=== PATIENT | female | born 1930 | race Caucasian/White ===

== ENCOUNTER 2017-04-06 09:10 | Inpatient (IN) ==
[2017-04-06] MEDS ORDERED: SODIUM CHLORIDE 0.9% 500 ML IV STA (09:30)
[2017-04-06 09:47] LABS: Basophils # 0.1 10*3/uL (0.0-0.2); Basophils % 0.7 % (0.0-0.8); Hematocrit 28.3 VOL% (35.7-47.0); Hemoglobin 9.8 GM/DL (12.0-16.0); Immature Granulocytes % 8.7 %; Immature Granulocytes Absolute 1.55 #; Lymphocytes # 3.7 10*3/uL (1.4-4.0); Lymphocytes % 20.9 % (21.3-54.2); Mean Corpuscular HGB Conc 34.6 GM/DL (32-36); Mean Corpuscular Hemoglobin 33 PG (27-34); Mean Corpuscular Volume 94.3 FL (87-102); Monocytes # 2.6 10*3/uL (0.11-0.8); Monocytes % 14.4 % (1.7-12.7); NRBC # 0.08 10*3/uL; Neutrophils # 9.8 10*3/uL (1.4-7.4); Neutrophils % 55.3 % (38.7-73.9); Platelet Count 294 T/CUMM (130-400); Red Cell Distribution Width 14.1 % (9.3-17.3); White Blood Count 17.7 T/CUMM (4-12)
[2017-04-06 09:54] LABS: PT Patient Result 10.9 SECS
[2017-04-06 10:23] LABS: Alanine Aminotransferase 80 U/L (13-56); Albumin 3.2 G/DL (3.4-5.0); Alkaline Phosphatase 67 U/L (45-117); Aspartate Amino Transferase 61 U/L (0-37); Bilirubin,Total < 0.39 MG/DL (0.2-1.0); Blood Urea Nitrogen 32 MG/DL (7-18); Calcium 8.9 MG/DL (8.5-10.1); Glucose 151 MG/DL (74-106); Osmolality,Calculated 279.1 MOS/KG (273-304); Potassium 4.5 MMOL/L (3.5-5.1); Sodium 135 MMOL/L (136-145); Total Protein 6.8 G/DL (6.4-8.3); Troponin I Only < 0.015 NG/ML (0.00-0.045)
[2017-04-06 10:26] LABS: Band Neutrophils 6 % (0-10); Hypochromasia 2+; Lymphocytes 24 % (20-55); Microcytosis 1+; Platelet Estimate Adequate; Segmented Neutrophils 55 % (50-85); Total Cells Counted 100
[2017-04-06 10:54] LABS: Apearance,Urine CLEAR (Clear); Bilirubin,Urine Negative (Negative); Blood, Urine Negative (Negative); Glucose,Urine (UA) Negative (Negative); Hyaline Casts,Urine 2 /LPF (0-3); Ketones,Urine Negative (Negative); Nitrite,Urine Negative (Negative); Protein,Urine Negative; RBC,Urine <1 /HPF (0-4); Urine Color Yellow (Yellow); Urine Specific Gravity 1.013 (1.001-1.035); Urine Urobilinogen < 2.0 EU/DL (0.2-1.0); WBC,Urine 1 /HPF (0-6)
[2017-04-06] MEDS ORDERED: diphenhydrAMINE CAP 25 MG CAPSULE PO PRN (11:26)
[2017-04-06] MEDS ORDERED: ONDANSETRON 4 MG/2 ML VIAL IV PRN (11:26)
[2017-04-06] MEDS ORDERED: DOCUSATE SODIUM 100 MG CAPSULE PO PRN (11:26)
[2017-04-06] MEDS ORDERED: cefTRIAXone 1,000 MG VIAL ONE (11:59)
[2017-04-06] MEDS ORDERED: PANTOPRAZOLE 40 MG TABLET PO ONE (12:00)
[2017-04-06] MEDS: SODIUM CHLORIDE 0.9% 1,000 ML IV SCH ×2 (12:15→21:20)
[2017-04-06] MEDS: PANTOPRAZOLE 40 MG TABLET PO SCH ×2 (12:15→21:23)
[2017-04-06] MEDS: cefTRIAXone 1,000 MG in SYRINGE 1 EACH IV SCH (12:15)
[2017-04-06 13:28] LABS: Hematocrit 22.7 VOL% (35.7-47.0); Hemoglobin 8.1 GM/DL (12.0-16.0)
[2017-04-06] MEDS ORDERED: metroNIDAZOLE 500 MG/100 ML PREMIX IV ONE (13:43)
[2017-04-06] MEDS: metroNIDAZOLE INJ 500 MG in PREMIX 1 EACH IV SCH ×2 (13:45→21:21)
[2017-04-06] MEDS ORDERED: POLYETHYLENE GLYCOL POWDER 255 GM BOTTLE PO ONE (15:12)
[2017-04-06] MEDS ORDERED: SODIUM CHLORIDE 0.9% 1,000 ML IV PRN ×2 (15:13→22:51)
[2017-04-06] MEDS: BISACODYL 5 MG TABLET PO SCH ×2 (17:01→23:28)
[2017-04-06] MEDS ORDERED: PROMETHAZINE INJ 25 MG in SODIUM CHLORIDE 0.9% 50 ML IV PRN (22:29)
[2017-04-06] MEDS ORDERED: FUROSEMIDE 20 MG/2 ML VIAL IV PRN (22:51)
[2017-04-06] MEDS ORDERED: POLYETHYLENE GLYCOL 3350/ELECTROLYTES 4,000 ML BOTTLE NG ONE (23:00)
[2017-04-06 23:18] LABS: Hematocrit 32.5 VOL% (35.7-47.0)
[2017-04-06 23:26] LABS: Hemoglobin 11.9 GM/DL (12.0-16.0)
[2017-04-07] MEDS: metroNIDAZOLE INJ 500 MG in PREMIX 1 EACH IV SCH ×4 (03:16→21:07)
[2017-04-07] MEDS: SODIUM CHLORIDE 0.9% 1,000 ML IV SCH ×3 (03:43→19:30)
[2017-04-07 05:43] LABS: Basophils # 0.1 10*3/uL (0.0-0.2); Basophils % 0.7 % (0.0-0.8); Hematocrit 31.5 VOL% (35.7-47.0); Hemoglobin 11.2 GM/DL (12.0-16.0); Immature Granulocytes % 6.3 %; Immature Granulocytes Absolute 0.96 #; Lymphocytes # 2.7 10*3/uL (1.4-4.0); Lymphocytes % 17.7 % (21.3-54.2); Mean Corpuscular HGB Conc 35.6 GM/DL (32-36); Mean Corpuscular Hemoglobin 32 PG (27-34); Mean Platelet Volume 9.9 FL (9.6-12.0); Monocytes # 2.3 10*3/uL (0.11-0.8); Monocytes % 15.3 % (1.7-12.7); NRBC # 0.08 10*3/uL; Neutrophils # 9.1 10*3/uL (1.4-7.4); Platelet Count 225 T/CUMM (130-400); Red Blood Count 3.54 MC/CUMM (3.8-5.5); Red Cell Distribution Width 14.9 % (9.3-17.3); White Blood Count 15.2 T/CUMM (4-12)
[2017-04-07 05:55] LABS: INR 1.1; PT Patient Result 11.1 SECS
[2017-04-07 06:04] LABS: Calcium 8.4 MG/DL (8.5-10.1); Magnesium 1.7 MG/DL (1.8-2.4); Osmolality,Calculated 281.4 MOS/KG (273-304); Potassium 3.4 MMOL/L (3.5-5.1)
[2017-04-07 07:00] LABS: Band Neutrophils 5 % (0-10); Hypochromasia 1+; Lymphocytes 16 % (20-55); Microcytosis 1+; Myelocytes 2 %; Nucleated Red Blood Cells 1 (0-5); Platelet Estimate Normal; Segmented Neutrophils 63 % (50-85); Total Cells Counted 100
[2017-04-07] MEDS ORDERED: MAGNESIUM SULF RIDER 2 GM in PREMIX 1 EACH IV ONE (07:35)
[2017-04-07] MEDS ORDERED: POTASSIUM CHLORIDE RIDER 10 MEQ in PREMIX 1 EACH IV SCH (08:00)
[2017-04-07] MEDS: BISACODYL 5 MG TABLET PO SCH (08:18)
[2017-04-07] MEDS: cefTRIAXone 1,000 MG in SYRINGE 1 EACH IV SCH (08:18)
[2017-04-07 08:44] LABS: Hematocrit 31.5 VOL% (35.7-47.0); Hemoglobin 11.1 GM/DL (12.0-16.0)
[2017-04-07] MEDS ORDERED: PHENYLEPHRINE 1 MG/10 ML SYRINGE IV ONE (08:50)
[2017-04-07] MEDS ORDERED: PROPOFOL 200 MG/20 ML VIAL IV ONE ×2 (08:50→17:08)
[2017-04-07] MEDS ORDERED: LIDOCAINE 100 MG/5 ML SYRINGE ONE (08:50)
[2017-04-07] MEDS ORDERED: SODIUM CHLORIDE 0.9% IV ONE (09:00)
[2017-04-07] MEDS ORDERED: MAGNESIUM SULF IV ONE (09:00)
[2017-04-07] MEDS ORDERED: POTASSIUM CHLORIDE IV ONE (09:00)
[2017-04-07] MEDS ORDERED: SODIUM CHLORIDE 0.9% 1,000 ML IV PRN (13:45)
[2017-04-07] MEDS: PANTOPRAZOLE 40 MG TABLET PO SCH ×2 (14:28→21:07)
[2017-04-07 18:28] LABS: Hemoglobin 11.9 GM/DL (12.0-16.0)
[2017-04-07] MEDS: ACETAMINOPHEN 325 MG TABLET PO PRN (23:07)
[2017-04-08] MEDS: metroNIDAZOLE INJ 500 MG in PREMIX 1 EACH IV SCH ×4 (03:47→21:55)
[2017-04-08 05:49] LABS: Hematocrit 29.6 VOL% (35.7-47.0); Hemoglobin 10.5 GM/DL (12.0-16.0)
[2017-04-08] MEDS: SODIUM CHLORIDE 0.9% 1,000 ML IV SCH ×3 (07:31→23:00)
[2017-04-08] MEDS: PANTOPRAZOLE 40 MG TABLET PO SCH ×2 (08:48→21:57)
[2017-04-08] MEDS: cefTRIAXone 1,000 MG in SYRINGE 1 EACH IV SCH (08:48)
[2017-04-08] MEDS: ALLOPURINOL 100 MG TABLET PO SCH (12:47)
[2017-04-08] MEDS: LOVASTATIN 20 MG TABLET PO SCH (16:23)
[2017-04-08] MEDS: ACETAMINOPHEN 325 MG TABLET PO PRN (21:57)
[2017-04-08] MEDS: POTASSIUM CHLORIDE 20 MEQ TABLET PO SCH (21:57)
[2017-04-09] MEDS: metroNIDAZOLE INJ 500 MG in PREMIX 1 EACH IV SCH ×2 (03:42→09:54)
[2017-04-09 05:20] LABS: Basophils % 0.7 % (0.0-0.8); Hematocrit 26.8 VOL% (35.7-47.0); Hemoglobin 9.5 GM/DL (12.0-16.0); Immature Granulocytes % 3.1 %; Lymphocytes # 2.2 10*3/uL (1.4-4.0); Lymphocytes % 25.6 % (21.3-54.2); Mean Corpuscular HGB Conc 35.4 GM/DL (32-36); Mean Corpuscular Hemoglobin 31 PG (27-34); Mean Corpuscular Volume 86.7 FL (87-102); Mean Platelet Volume 9.6 FL (9.6-12.0); Monocytes # 1.8 10*3/uL (0.11-0.8); Monocytes % 21.6 % (1.7-12.7); Neutrophils # 4.1 10*3/uL (1.4-7.4); Platelet Count 221 T/CUMM (130-400); Red Blood Count 3.09 MC/CUMM (3.8-5.5); White Blood Count 8.4 T/CUMM (4-12)
[2017-04-09 05:21] LABS: Basophils # 0.1 10*3/uL (0.0-0.2); Immature Granulocytes Absolute 0.26 #; NRBC # 0.03 10*3/uL
[2017-04-09 05:48] LABS: Calcium 7.7 MG/DL (8.5-10.1); Magnesium 1.6 MG/DL (1.8-2.4); Osmolality,Calculated 280.4 MOS/KG (273-304); Potassium 3.7 MMOL/L (3.5-5.1)
[2017-04-09] MEDS: LIOTHYRONINE 25 MCG TABLET PO SCH (05:58)
[2017-04-09] MEDS: ACETAMINOPHEN 325 MG TABLET PO PRN (05:58)
[2017-04-09] MEDS: LEVOTHYROXINE 100 MCG TABLET PO SCH (05:59)
[2017-04-09 06:08] LABS: Lymphocytes 29 % (20-55); Segmented Neutrophils 57 % (50-85); Total Cells Counted 100
[2017-04-09 06:10] LABS: Hypochromasia 1+; Platelet Estimate Normal
[2017-04-09 06:11] LABS: Polychromasia Few
[2017-04-09] MEDS: MULTIVITAMIN (CENTRUM) TABLET PO SCH (08:47)
[2017-04-09] MEDS: guaiFENesin/DM ER 600-30 MG TABLET PO PRN ×2 (08:47→21:12)
[2017-04-09] MEDS: PANTOPRAZOLE 40 MG TABLET PO SCH ×2 (08:47→21:12)
[2017-04-09] MEDS: POTASSIUM CHLORIDE 20 MEQ TABLET PO SCH ×2 (08:48→21:12)
[2017-04-09] MEDS: INDAPAMIDE 2.5 MG TABLET PO SCH (08:48)
[2017-04-09] MEDS: ALLOPURINOL 100 MG TABLET PO SCH (08:48)
[2017-04-09] MEDS: CALCIUM (CARBONATE) 600 MG TABLET PO SCH (08:48)
[2017-04-09] MEDS: LOSARTAN 50 MG TABLET PO SCH (08:48)
[2017-04-09] MEDS: cefTRIAXone 1,000 MG in SYRINGE 1 EACH IV SCH (08:49)
[2017-04-09] MEDS ORDERED: TEMAZEPAM 7.5 MG CAPSULE PO PRN (09:23)
[2017-04-09] MEDS ORDERED: SODIUM CHLORIDE 0.9% 1,000 ML IV PRN (11:57)
[2017-04-09] MEDS ORDERED: FUROSEMIDE 20 MG/2 ML VIAL IV PRN (11:57)
[2017-04-09] MEDS: LOVASTATIN 20 MG TABLET PO SCH (17:21)
[2017-04-09 19:06] LABS: Hematocrit 33.1 VOL% (35.7-47.0)
[2017-04-09 19:08] LABS: Hemoglobin 11.9 GM/DL (12.0-16.0)
[2017-04-10] MEDS: ACETAMINOPHEN 325 MG TABLET PO PRN (02:21)
[2017-04-10] MEDS: LIOTHYRONINE 25 MCG TABLET PO SCH (05:31)
[2017-04-10] MEDS: LEVOTHYROXINE 100 MCG TABLET PO SCH (05:31)
[2017-04-10] MEDS: LOSARTAN 50 MG TABLET PO SCH (09:41)
[2017-04-10] MEDS: MULTIVITAMIN (CENTRUM) TABLET PO SCH (09:41)
[2017-04-10] MEDS: POTASSIUM CHLORIDE 20 MEQ TABLET PO SCH (09:41)
[2017-04-10] MEDS: ALLOPURINOL 100 MG TABLET PO SCH (09:41)
[2017-04-10] MEDS: INDAPAMIDE 2.5 MG TABLET PO SCH (09:41)
[2017-04-10] MEDS: PANTOPRAZOLE 40 MG TABLET PO SCH (09:42)
[2017-04-10] MEDS: CALCIUM (CARBONATE) 600 MG TABLET PO SCH (09:42)
[2017-04-10] MEDS ORDERED: MAGNESIUM SULF RIDER 2 GM in PREMIX 1 EACH IV ONE (11:00)
[2017-04-10] MEDS ORDERED: MAGNESIUM OXIDE 400 MG TABLET PO SCH (11:00)
[2017-04-10 12:10] VITALS: BP 136/69
== END 2017-04-10 12:30 | disposition swing bed (61) | DRG 378 ==
LOC: EDUNIT# → EDBD → N.ED 09:10 → SUATTDRO 10:43 → N.EDINP 10:43 → N.2E 14:07
PROVIDERS: ADMIT Internal Medicine; ATTEND Internal Medicine